=== PATIENT | male | born 2000 | race Caucasian/White ===

== ENCOUNTER 2023-10-21 05:51 | Emergency (ER) | payer BC ==
[2023-10-21] MEDS: Sodium Chloride 0.9% 10 ML Syringe FLUSH PRN (06:20)
[2023-10-21] MEDS: methylPREDNISolone Sodium Succinate 125 MG/2 ML SDV IVPUSH ONE (06:20)
[2023-10-21] MEDS: diphenhydrAMINE 50 MG/ML SDV IVPUSH ONE (06:20)
[2023-10-21 06:28] LABS: BASOPHILS ABSOLUTE AUTO 0.2 K/mm3 (0.0-0.2); BASOPHILS PERCENT AUTO 0.2 % (0.0-1.0); EOSINOPHILS ABSOLUTE AUTO 0.2 K/mm3 (0.0-0.4); EOSINOPHILS PERCENT AUTO 0.2 % (0.0-6.0); HEMATOCRIT 23.8 % (42.0-52.0); HEMOGLOBIN 7.7 gm/dl (14.0-18.0); IMMATURE GRAN ABSOLUTE AUTO 4.54 K/mm3 (0.00-0.05); IMMATURE GRAN PERCENT AUTO 4.6 % (0.0-0.4); LYMPHOCYTES ABSOLUTE AUTO 8.9 K/mm3 (1.0-4.8); MEAN CORPUSCULAR HEMOGLOBIN 32.6 pg (28.0-32.0); MEAN CORPUSCULAR HGB CONC 32.4 g/dl (32.0-36.0); MEAN CORPUSCULAR VOLUME 100.8 fl (83.0-99.0); MEAN PLATELET VOLUME 10.9 fl (9.4-12.4); MONOCYTES ABSOLUTE AUTO 78.2 K/mm3 (0.0-0.8); MONOCYTES PERCENT AUTO 78.8 % (0.0-8.0); NEUTROPHILS ABSOLUTE AUTO 7.2 K/mm3 (1.8-7.7); NEUTROPHILS PERCENT AUTO 7.2 % (41.0-71.0); NRBC ABSOLUTE 0.09 (0.00-0.02); NRBC PERCENT 0.1 % (0.0-0.2); PLATELET COUNT,PLT 43 K/mm3 (150-400); RED BLOOD CELL COUNT 2.36 M/mm3 (4.52-5.90)
[2023-10-21 06:44] LABS: ANION GAP 10.6 (5-15); CALCIUM 8.5 mg/dL (8.5-10.1); EST CRCL DRUG DOSING (CG) 130.95 mL/min; POTASSIUM,K 3.6 mEq/L (3.5-5.1)
[2023-10-21] MEDS: Iopamidol 755 Mg/ML 100 ML Bottle IVPUSH ONE (07:13)
[2023-10-21 07:14] LABS: WHITE BLOOD CELL COUNT,WBC 99.22 K/mm3 (3.9-11.3)
[2023-10-21] MEDS: Sodium Chloride 0.9% 10 ML Syringe FLUSH ONE (07:14)
[2023-10-21 07:26] LABS: RETICULOCYTE COUNT PERCENT 0.58 % (0.50-2.00)
[2023-10-21 07:58] LABS: SLIDE REVIEW ABNORMAL SMEAR
[2023-10-21] MEDS ORDERED: cefTRIAXone 1 GM in Sodium Chloride 0.9% 100 ML IV ONE (08:12)
[2023-10-21 12:42] LABS: MACRO 1+ /hpf; NEUTROPHILS% 9 % (41-71)
== END 2023-10-21 08:30 | disposition home or self-care (01) ==
LOC: JD.ED 05:51
DX: L03.211 Cellulitis of face (principal); R79.89 Other specified abnormal findings of blood chemistry; F17.210 Nicotine dependence, cigarettes, uncomplicated
CPT/HCPCS: 36415; 70491; 80048; 85025; 85045; 86308; 96374; 96375; 99284; J1200; J2919; J3490; Q9967